=== PATIENT | male | born 1970 | race African-American/Black ===

== ENCOUNTER 2021-02-05 07:50 | Emergency (ER) | payer BC ==
[~2021-02-05] VITALS: Ht 170.2 cm; Wt 81.6 kg
--- NOTE | 2021-02-05 08:00 | NUR ---
BIB 878 FROM [facility] C/O L KNEE PAIN "I PLANTED MY LEFT LEG TO KICK THE BALL AND IT BUCKLED". THE PATIENT RATES LEFT KNEE PAIN 12/25. NO APPARENT DEFORMITY NOTED. WILL CONTINUE TO MONITOR THE PATIENT.
[2021-02-05] MEDS ORDERED: IBUPROFEN 400 MG TABLET ONE (08:12)
[2021-02-05] MEDS ORDERED: IBUP-1955 PO (08:28)
[2021-02-05] MEDS ORDERED: IBUPROFEN 400 MG TABLET PO ONE (08:30)
--- NOTE | 2021-02-05 09:06 | NUR ---
Patient discharged to home in stable condition. Written and verbal after care instructions given. Patient verbalizes understanding of instruction.
[2021-02-05 09:07] VITALS: BP 119/75
== END 2021-02-05 09:07 | disposition home or self-care (01) ==
LOC: ER 07:52
DX: S86.812A Strain of other muscle(s) and tendon(s) at lower leg level, left leg, initial encounter (principal); W22.8XXA Striking against or struck by other objects, initial encounter; Y93.66 Activity, soccer; Y92.322 Soccer field as the place of occurrence of the external cause; Y99.8 Other external cause status
CPT/HCPCS: 73564-TC

== ENCOUNTER 2024-09-03 16:52 | Emergency (ER) | payer BC ==
[~2024-09-03] VITALS: Ht 172.7 cm; Wt 90.7 kg
[~2024-09-03 16:52] MED LIST: IBUP-1955 PO
[2024-09-03] MEDS ORDERED: BACI/NEOM/POLY B OINT PKT 1 UDPKT PACKET ONE (19:12)
[2024-09-03] MEDS: LIDOCAINE HCL/PF 1% 30 ML VIAL TP ONE (19:12)
[2024-09-03] MEDS: BACI/NEOM/POLY B OINT PKT 1 UDPKT PACKET TP ONE (19:15)
[2024-09-03] MEDS ORDERED: LIDOCAINE 2% 20 ML MDV ONE (19:15)
[2024-09-03] MEDS ORDERED: IBUP-76 PO (20:16)
[2024-09-03] MEDS ORDERED: ACET-73 PO (20:18)
[2024-09-03 20:23] VITALS: BP 137/84; TEMP 98.1; O2SAT 99
== END 2024-09-03 20:23 | disposition home or self-care (01) ==
LOC: ER 16:55
DX: S61.213A Laceration without foreign body of left middle finger without damage to nail, initial encounter (principal); F17.200 Nicotine dependence, unspecified, uncomplicated; W01.0XXA Fall on same level from slipping, tripping and stumbling without subsequent striking against object, initial encounter; Y93.89 Activity, other specified; Y92.89 Other specified places as the place of occurrence of the external cause; Y99.8 Other external cause status
CPT/HCPCS: 12001; 73140; 99283; A6403; J3490